=== PATIENT | female | born 1965 | race Caucasian/White ===

== ENCOUNTER 2016-04-09 12:58 | Emergency (ER) | payer OTHER ==
[2016-04-09] MEDS ORDERED: traMADol 50 MG TAB PO ONE (13:51)
--- NOTE | 2016-04-09 14:19 | EDPHY ---
H & P Stated Complaint: Fx L wrist;sent from [facility] [place] for [place];leonel surgery HPI/ROS: CHIEF COMPLAINT: Left wrist pain, fall HISTORY OF PRESENT ILLNESS: patient slipped on the ice, falling on outstretched arm on the left side earlier today. She noted sudden onset of pain in the distal wrist. She has severe pain of the wrist that radiates into the hand and fingers. No numbness of the hand and fingers. No wrist drop. No weakness of the fingers. She has no ipsilateral forearm, elbow or shoulder pain. No head or neck injury. No chest or back pain. No injuries elsewhere. She was seen at urgent care and sent here to the emergency department after a distal radial ulnar fracture was found on x-ray. Significant pain with movement. Improved with rest. Improving with the splint today placed at the urgent care. She has no other associated complaints or modifying factors. PRIOR ORTHO INJURIES: None ESTABLISHED ORTHOPEDIST: none REVIEW OF SYSTEMS: Ten systems reviewed and are negative unless otherwise noted in the HPI EXAMINATION General Appearance: Alert, no distress Head: normocephalic, atraumatic Eyes: Pupils equal and round, no conjunctival pallor or injection Neck: Normal inspection Respiratory: No dyspnea or retractions. No distress Cardiovascular: Pulses normal throughout With symmetric radial pulses 2+. Brisk cap refill In all 10 fingers Neurological: A&O, radial, ulnar and median distributions are intact with 2 point sensation retained. No wrist drop Skin: Warm and dry, no rash Extremities: LUE: significant tenderness to palpation of the left wrist. Minimal deformity noted. Range of motion is limited due to pain. Range of motion of the fingers fully intact. There is no cyanosis, pallor or anesthesia of the hand. No tenderness to palpation of the ulna or radius on the left upper extremity. No injury elsewhere. Range of motion of the shoulder intact Psychiatric: Mood and affect normal MDM: 2:15 p.m. fall with distal radial ulnar fractures. X-rays were reviewed by me, after having been read By radiologist at urgent care. She is neurovascularly intact and her pain is tolerable. She arrives in a splint, and I did remove the splint and examine the arm. I discussed all of this with the orthopedic PA at this time. they confirmed that they do not recommend that we attempt to reduce as likely will not provide any help her. They would like her to remain her sugar-tong splint and I will see her on Monday in the office. She will be discharged home stable conditions with pain medication, sugar-tong splint and ER precautions as listed below. The patient and spouse are comfortable with this plan and she will be discharged home ED Precautions: Worsening pain. Erythema, edema, cyanosis, pallor, paresthesia or anesthesia. SUPERVISION: This patient was independently evaluated without the aide of supervising physician. Source: Patient, Family Exam Limitations: No limitations - Personal History LMP (Females 10-55): IUD In Place - Medical/Surgical History Other PMH: healthy - Social History Smoking Status: Never smoked Constitutional: Initial Vital Signs Temperature (C) 99.0 F 04/09/16 13:10 Heart Rate 78 04/09/16 13:10 Respiratory Rate 18 04/09/16 13:10 Blood Pressure 148/100 H 04/09/16 13:10 O2 Sat (%) 98 04/09/16 13:10 O2 Delivery Mode Room Air Allergies/Adverse Reactions: No Known Allergies Allergy (Unverified 04/09/16 13:11) Home Medications: Medication Instructions Recorded Estrogens,Conj/Bazedoxifene 1 each PO 04/09/16 [Duavee 0.45-20 mg Tablet] Levonorgestrel [Mirena] 1 each IY 04/09/16 Progesterone,Micronized 100 mg PO 04/09/16 [Progesterone] traMADol [Ultram 50 mg (*)] 50 mg PO Q4 PRN #20 tab 04/09/16 Departure - Departure Disposition: Home, Routine, Self-Care Clinical Impression: Radius and ulna distal fracture Qualifiers: Encounter type: initial encounter Fracture type: closed Laterality: left Qualifier Code: (S52.502A) Unspecified fracture of the lower end of left radius , initial encounter for closed fracture Condition: Good Instructions: Arm Fracture in Adults (ED), Wrist Fracture in Adults (ED) Referrals: Krystina Kenney MD [Primary Care Provider] - As per Instructions Jose Kenney MD [Medical Doctor] - As per Instructions Prescriptions: traMADol [Ultram 50 mg (*)] 50 mg PO Q4 PRN #20 tab PRN Reason: Pain, Moderate
[2016-04-09 15:05] VITALS: BP 114/79; PULSE 75; RESP 16; TEMP 97.7; O2SAT 95
== END 2016-04-09 14:50 | disposition home or self-care (01) ==
DX: S52.502A Unspecified fracture of the lower end of left radius, initial encounter for closed fracture (principal); W00.0XXA Fall on same level due to ice and snow, initial encounter

== ENCOUNTER → 2016-04-09 | Outpatient (CLI) | payer OTHER ==
--- NOTE | 2016-04-09 12:28 | DX ---
Left Wrist Series, 4 views 11:55 a.m. Indication: Fall. Pain. Comparison: None Findings: An acute comminuted intra-articular distal radius fracture has mild apex volar angulation. A transverse fracture courses through the base of the ulnar styloid. The carpal bones are anatomic a nd articulate with the angulated distal radial fracture fragments. Impression: 1. Acute angulated intra-articular distal radius fracture. 2. Nondisplaced ulnar styloid fracture.
== END ==
LOC: BMCIMAGING 12:01
PROVIDERS: ATTEND Family Medicine
DX: S52.502A Unspecified fracture of the lower end of left radius, initial encounter for closed fracture (principal); S52.615A Nondisplaced fracture of left ulna styloid process, initial encounter for closed fracture; W19.XXXA Unspecified fall, initial encounter; Y93.01 Activity, walking, marching and hiking

== ENCOUNTER → 2016-06-08 | Outpatient (CLI) | payer OTHER | LOC: FIMAGING 10:24 | DX: Z12.31 Encounter for screening mammogram for malignant neoplasm of breast (principal); Z80.3 Family history of malignant neoplasm of breast | CPT/HCPCS: G0202 ==